=== PATIENT | female | born 1995 | race African-American/Black ===

== ENCOUNTER 2018-09-07 22:36 | Emergency (ER) | payer OTHER ==
[~2018-09-07] VITALS: Ht 160 cm; Wt 73.0 kg
[2018-09-08] MEDS ORDERED: HYDROCODONE/ACETAMINOPHEN 5/325MG TABLET PO ONE
[2018-09-08] MEDS ORDERED: TETANUS, DIPHTHERIA, PERTUSSIS VAC/PF 0.5ML (>7YR OLD) IM ONE (02:00)
[2018-09-08 03:06] VITALS: BP 114/72
== END 2018-09-08 03:12 | disposition home or self-care (01) ==
LOC: ER 22:36
DX: S40.021A Contusion of right upper arm, initial encounter (principal); V43.52XA Car driver injured in collision with other type car in traffic accident, initial encounter; Y93.89 Activity, other specified; Y92.488 Other paved roadways as the place of occurrence of the external cause
CPT/HCPCS: 29125; 73030; 73060; 73080; 73110; 73130; 90471; 90715; 99283; A4565